=== PATIENT | female | born 1965 | race Caucasian/White ===

== ENCOUNTER → 2016-11-10 | Outpatient (CLI) | payer BC ==
[~2016-11-10] MED LIST: HYDROCHLOROTHIA25 MG PO; MUCINEX FAST-M1 EAC2 PO; MULTIPLE VITAM1 EAC4 PO; ZOLOFT25 MG PO
== END | disposition home or self-care (01) ==
LOC: CDC 15:37
DX: R94.31 Abnormal electrocardiogram [ECG] [EKG] (principal); J35.1 Hypertrophy of tonsils; J32.9 Chronic sinusitis, unspecified
CPT/HCPCS: 93000